=== PATIENT | female | born 1990 | race Hispanic/Latino ===

== ENCOUNTER 2024-03-18 12:44 | Emergency (ER) | payer BC ==
[~2024-03-18] VITALS: Ht 152.4 cm; Wt 71.2 kg
[2024-03-18 12:51] VITALS: TEMP 97.4
[2024-03-18] MEDS ORDERED: IOPAMIDOL 370 MG/ML 100 ML INFUS..BTL INJ ONE (13:03)
[2024-03-18 13:13] LABS: BASOPHILS # (AUTO) 0.1 (0.0-0.1); BASOPHILS % 0.5 % (0.0-1.0); EOSINOPHILS % 0.3 % (0.0-6.0); HEMATOCRIT 41.8 % (34.2-44.1); HEMOGLOBIN 13.8 g/dL (12.0-16.0); LYMPHOCYTES # (AUTO) 2.4 (1.0-3.2); LYMPHOCYTES % 24.7 % (18.0-39.1); MEAN CORPUSCULAR HEMOGLOBIN 31.9 pg (28-32); MEAN CORPUSCULAR VOLUME 96.8 fL (81-99); MONOCYTES # (AUTO) 0.5 (0.2-0.8); NEUTROPHILS # (AUTO) 6.6 (2.1-6.9); NEUTROPHILS % 69.1 % (38.7-80.0); PLATELET COUNT 266 x10e3/uL (140-360); RED BLOOD COUNT 4.32 x10e6/uL (3.6-5.1); RED CELL DISTRIBUTION WIDTH 12.2 % (11.7-14.4); WHITE BLOOD COUNT 9.55 x10e3/uL (4.8-10.8)
[2024-03-18] MEDS: SODIUM CHLORIDE 0.9% 1000ML 1,000 ML IV STA (13:17)
[2024-03-18 13:34] LABS: INR 0.94; PARTIAL THROMBOPLASTIN TIME 29.7 seconds (23.8-35.5); PROTHROMBIN TIME 13.2 seconds (11.9-14.5)
[2024-03-18 13:44] LABS: ALANINE AMINOTRANSFERASE 11 IU/L (0-55); ALBUMIN 4.6 g/dL (3.5-5.0); ALBUMIN/GLOBULIN RATIO 1.4 (0.8-2.0); ALKALINE PHOSPHATASE 46 IU/L (40-150); ANION GAP 16.4 mmol/L (8-16); BLOOD UREA NITROGEN 15 mg/dL (7-26); BUN/CREATININE RATIO 18 (6-25); CALCIUM 9.8 mg/dL (8.4-10.2); CARBON DIOXIDE 21 mmol/L (22-29); CHLORIDE 106 mmol/L (98-107); CREATINE KINASE 85 IU/L (29-168); CREATININE, SERUM 0.84 mg/dL (0.57-1.11); EST GLOMERULAR FILTRATION RATE 93 ML/MIN (>=60); GLUCOSE 85 mg/dL (74-118); LIPASE 28 U/L (8-78); SODIUM 140 mmol/L (136-145); TOTAL PROTEIN 7.8 g/dL (6.5-8.1)
[2024-03-18 13:46] LABS: POTASSIUM 3.4 mmol/L (3.5-5.1)
[2024-03-18 13:50] LABS: TROPONIN I < 0.001 ng/mL (0-0.300)
[2024-03-18 15:02] VITALS: PULSE 94; RESP 18; O2SAT 100
[2024-03-18] MEDS ORDERED: METHOCARBAMOL500 MG PO (15:51)
[2024-03-18] MEDS ORDERED: ULTRAM 50MG50 MG PO (15:51)
[2024-03-18] MEDS: TRAMADOL HCL 50 MG TAB PO ONE (15:59)
== END 2024-03-18 16:21 | disposition home or self-care (01) ==
LOC: ER 12:57
DX: S20.213A Contusion of bilateral front wall of thorax, initial encounter (principal); S00.83XA Contusion of other part of head, initial encounter; S60.221A Contusion of right hand, initial encounter; S80.02XA Contusion of left knee, initial encounter; V43.52XA Car driver injured in collision with other type car in traffic accident, initial encounter; Y92.488 Other paved roadways as the place of occurrence of the external cause
CPT/HCPCS: 36415; 70450; 71260; 72125; 73130; 73562; 73590; 74177; 80053; 82550; 83690; 84484; 84702; 85025; 85610; 85730; 99283; J7030; Q9967